=== PATIENT | male | born 1995 | race Two or more races ===

== ENCOUNTER 2021-07-10 19:02 | Emergency (ER) | payer OTHER, SELFPAY ==
[~2021-07-10] VITALS: Ht 172.7 cm; Wt 112.3 kg
[2021-07-10 19:07] VITALS: BP 134/93
[2021-07-10] MEDS ORDERED: LIDOCAINE-MPF 1%, 5ML INFIL ONE (19:30)
[2021-07-10] MEDS ORDERED: DIPH,PERTUSS(ACELL),TET VAC/PF 0.5 ML IM-VACC ONE ×2 (19:30→20:27)
--- NOTE | 2021-07-10 20:23 | NUR ---
PT. TO ROOM FROM LOBBY AT THIS TIME.
[2021-07-10] MEDS ORDERED: LIDOCAINE-MPF 1%, 5ML ONE (20:27)
[2021-07-10] MEDS ORDERED: NEOSPORIN OINT. PKT 1 PACKET ONE (21:03)
== END 2021-07-10 21:10 | disposition home or self-care (01) ==
LOC: ED 20:45
DX: S01.511A Laceration without foreign body of lip, initial encounter (principal); X58.XXXA Exposure to other specified factors, initial encounter; Y93.61 Activity, american tackle football; Y92.89 Other specified places as the place of occurrence of the external cause; Y99.8 Other external cause status
CPT/HCPCS: 12013; 90471; 90715; 99283